=== PATIENT | female | born 1990 | race African-American/Black ===

== ENCOUNTER 2017-06-05 03:57 | Emergency (ER) | payer OTHER ==
[~2017-06-05] VITALS: Ht 160 cm; Wt 101.3 kg
[~2017-06-05 03:57] MED LIST: HAIR VITAMIN1 EACH PO; HYDROCODON-ACE1 EAC7 PO; JUNEL FE 1/21 TABLET PO; MULTIVITAMIN1 EAC2 PO; ZYRTEC10 MG PO
[2017-06-05 05:43] LABS: CHLORIDE 105 mEq/L (99-109); POTASSIUM 3.5 mEq/L (3.7-5.4); SODIUM 139 mEq/L (136-147)
[2017-06-05 05:45] LABS: GLUCOSE 83 mg/dL (70-99)
[2017-06-05 05:46] LABS: ANION GAP 9 MEQ/L (2-14)
[2017-06-05 05:48] LABS: GFR ESTIMATE (CALCULATED) > 59 mL/min/
[2017-06-05 05:49] LABS: UREA NITROGEN (BUN) 10 mg/dL (9-23)
[2017-06-05 06:11] LABS: HEMATOCRIT 30.7 % (36.0-46.0); MCH 22.3 PG (29.0-34.0); MCHC 30.6 G/DL (30.0-36.0); MCV 72.7 FL (83-99); MEAN PLAT.VOLUME 10.9 uM^3 (9.5-12.4); PLATELET COUNT 284 K/uL (156-360); RBC DIS.WIDTH-CV 16.6 % (11.8-14.6); RBC DIS.WIDTH-SD 43.8 % (39-53); RED BLOOD COUNT 4.22 M/uL (3.80-5.20); WHITE BLOOD COUNT 4.7 K/uL (4.1-10.2)
[2017-06-05 06:21] LABS: TROP-I INTERPRETATION NEGATIVE; TROPONIN-I < 0.01 ng/mL (0.0-0.30)
[2017-06-05 07:06] VITALS: BP 141/92
== END 2017-06-05 07:38 | disposition home or self-care (01) ==
LOC: EME 03:57
PROVIDERS: Emergency Medicine
DX: R07.89 Other chest pain (principal); J45.909 Unspecified asthma, uncomplicated
CPT/HCPCS: 71020; 80048; 84484; 85027; 85379; 93005; 99281; 99285